=== PATIENT | male | born 1955 | race Caucasian/White ===

== ENCOUNTER 2017-12-07 01:18 | Emergency (ER) | payer OTHER ==
[~2017-12-07] VITALS: Ht 167.6 cm; Wt 66.0 kg
[2017-12-07 01:19] VITALS: BP 109/73
[2017-12-07] MEDS ORDERED: [UNRECOGNIZED DRUG - OTHER] (01:27)
[2017-12-07] MEDS ORDERED: OSEL75CA PO (01:27)
[2017-12-07] MEDS ORDERED: AMOX1TAB64 PO (01:27)
[2017-12-07] MEDS ORDERED: IBUPROFEN 200 MG TABLET ONE (01:51)
[2017-12-07] MEDS ORDERED: IBUPROFEN 200 MG TABLET PO ONE (02:00)
== END 2017-12-07 01:56 | disposition home or self-care (01) ==
LOC: ED 01:45
DX: K08.89 Other specified disorders of teeth and supporting structures (principal)
CPT/HCPCS: 99283

== ENCOUNTER 2019-11-02 19:51 | Emergency (ER) | payer OTHER ==
[~2019-11-02] VITALS: Ht 167.6 cm; Wt 73.9 kg
[~2019-11-02 19:51] MED LIST: AMOX1TAB64 PO; OSEL75CA26 PO; [UNRECOGNIZED DRUG - OTHER]
--- NOTE | 2019-11-02 20:02 | NUR ---
Triage note: Patient drank hot coffee just prior to sitting down and having temperature taken.
[2019-11-02] MEDS ORDERED: ASPIRIN 81 MG TABLET CHEW PO ONE (20:30)
[2019-11-02 20:34] LABS: BASOPHILS # (AUTO) 0.04 x10^3/uL (0-0.1); BASOPHILS % (AUTO) 0 % (0-1); EOSINOPHILS % (AUTO) 3 % (1-7); LYMPHOCYTES % (AUTO) 21 % (22-44); MD NO; MEAN CORPUSCULAR HGB CONC 33.5 g/dL (33.2-36.2); MEAN CORPUSCULAR VOLUME 95.5 fL (81-97); MONOCYTES # (AUTO) 1.25 x10^3/uL (0.2-0.8); MONOCYTES % (AUTO) 13 % (2-9); NEUTROPHILS # (AUTO) 6.17 x10^3/uL (1.8-6.8); NEUTROPHILS % (AUTO) 63 % (42-75); PLATELET COUNT 337 x10^3/uL (130-400); RED BLOOD COUNT 3.95 x10^6/uL (4.38-5.82); RED CELL DISTRIBUTION WIDTH 13.5 % (9.4-14.8)
[2019-11-02] MEDS ORDERED: ASPIRIN 81 MG TABLET CHEW ONE (20:35)
[2019-11-02 20:46] LABS: ALANINE AMINOTRANSFERASE 31 U/L (12-78); ALBUMIN 3.4 g/dL (3.4-5.0); ANION GAP 12 mmol/L (5-15); CALCIUM 8.6 mg/dL (8.5-10.1); CHLORIDE 107 mmol/L (98-107); CREATININE 1.01 mg/dL (0.7-1.3)
[2019-11-02 20:50] LABS: ALKALINE PHOSPHATASE 68 U/L (45-117); BILIRUBIN,TOTAL 0.4 mg/dL (0.2-1.0); TOTAL PROTEIN 7.1 g/dL (6.4-8.2); TROPONIN I < 0.015 ng/mL (0.000-0.045)
[2019-11-02 21:40] VITALS: BP 129/80
== END 2019-11-02 21:42 | disposition home or self-care (01) ==
LOC: ED 21:10
DX: S20.212A Contusion of left front wall of thorax, initial encounter (principal); F17.210 Nicotine dependence, cigarettes, uncomplicated; V17.4XXA Pedal cycle driver injured in collision with fixed or stationary object in traffic accident, initial encounter; Y93.I9 Activity, other involving external motion; Y92.488 Other paved roadways as the place of occurrence of the external cause; Y99.8 Other external cause status
CPT/HCPCS: 36415; 80053; 83880; 84484; 85025; 93005; 99284

== ENCOUNTER 2020-08-21 15:20 | Emergency (ER) | payer OTHER ==
[~2020-08-21] VITALS: Ht 167.6 cm; Wt 68.4 kg
--- NOTE | 2020-08-21 18:16 | NUR ---
Patient given discharge instructions and they have confirmed that they understand the instructions. Patient ambulatory to d/c desk with crutches.
[2020-08-21 18:17] VITALS: BP 106/61
== END 2020-08-21 18:23 | disposition home or self-care (01) ==
LOC: ED 18:00
DX: G89.11 Acute pain due to trauma (principal); M79.671 Pain in right foot; W01.0XXA Fall on same level from slipping, tripping and stumbling without subsequent striking against object, initial encounter; Y93.89 Activity, other specified; Y92.89 Other specified places as the place of occurrence of the external cause; Y99.8 Other external cause status
CPT/HCPCS: 99283